=== PATIENT | female | born 1965 | race Caucasian/White ===

== ENCOUNTER 2018-07-12 07:18 | Day surgery (SDC) | payer BC ==
[~2018-07-12] VITALS: Ht 152.4 cm; Wt 60.3 kg
[~2018-07-12 07:18] MED LIST: CEPH500 PO; ESTRADIOL1 MG PO; LEVSOD50 PO; LEVSOD75 PO; SITA50T2 PO
[2018-07-12] MEDS ORDERED: LEVSOD100 PO (07:51)
== END 2018-07-12 09:21 | disposition home or self-care (01) ==
LOC: ORSCSDS 07:18
PROVIDERS: Surgery
PROC: 0DJD8ZZ Inspection of Lower Intestinal Tract, Via Natural or Artificial Opening Endoscopic (ICD-10-PCS; principal; 2018-07-12 08:30)
DX: Z12.11 Encounter for screening for malignant neoplasm of colon (principal); E03.9 Hypothyroidism, unspecified; Z87.891 Personal history of nicotine dependence; Z79.899 Other long term (current) drug therapy